=== PATIENT | female | born 1945 | race Caucasian/White ===

== ENCOUNTER → 2016-07-25 | Outpatient (CLI) | payer OTHER ==
[~2016-07-25] MED LIST: ALEVE220 MG PO; ALLERGY10 M1 PO; AMBIEN 5 MG TABL5 M1 PO; AMITRIPTYLINE H25 M2 PO; ASPIR 8181 M1 PO; B-121000 MC2 PO; BISACODYL SUPP10 MG RE; CALCIUM 500 +1 EAC5 PO; CHLORZOXAZONE500 MG PO; CLARITIN10 M2 PO; CLARITIN10 MG PO; COLACE100 MG PO; DICLOFENAC SOD50 M1 PO; DIOVAN 80 MG TA80 M1 PO; FLOMAX0.4 MG PO; HYDROCODONE-AP1 EAC6 PO; IBUPROFEN 600600 M1 PO; KEFLEX500 M1 PO; KLOR-CON 1010 MEQ PO; LIORESAL 10 MG10 MG PO; LORATIDINE 10 M10 M1 PO; MAGNESIUM OXID400 MG PO; MAGOX 400400 MG PO; MIRALAX17 GM PO; MYRBETRIQ25 MG PO; MYRBETRIQ50 MG PO; NABUMETONE 750750 M1 PO; NEW BLOOD PRESSURE; NORCO 5-325 TA1 EACH PO; NORFLEX100 MG PO; OXYCODONE HCL10 MG PO; OXYCONTIN10 M1 PO; PERCOCET PO; SENNA LAXATIVE1 EACH PO; SERTRALINE HCL50 MG PO; TRAZODONE HCL100 MG PO; TRAZODONE HCL50 MG PO; ULTRAM50 MG PO; VALIUM10 MG PO; VITAMIN B-12500 MCG PO; XANAX 0.25 MG0.25 MG PO; XANAX 0.5 MG0.5 MG PO; ZANAFLEX4 MG PO; ZEBETA5 MG PO; ZIAC 5-6.25 MG1 EACH PO; ZOFRAN ODT4 MG SUBLING; ZYRTEC10 MG PO
== END ==
LOC: RAD 13:48
DX: Z12.31 Encounter for screening mammogram for malignant neoplasm of breast (principal)

== ENCOUNTER → 2017-09-17 | Outpatient (CLI) | payer OTHER, MEDICARE ==
[~2017-09-17] MED LIST changes: +CYMBALTA30 MG PO; +FLEXERIL PO; +IBUPROFEN 800800 M1 PO; +LEXAPRO 10 MG T10 M1 PO; +LOPERAMIDE 2 MG2 M1 PO; +MELATONIN3 MG PO; +METHOTREXATE 22.5 MG PO; +NEOMYCIN-POLY-7.5 ML OTIC; +OMEPRAZOLE20 M1 PO; +POTASSIUM20 PO; +REMICADE 1100 MG/VIA IV; +TRAMADOL 50 MG50 MG PO; +VALIUM5 MG PO
== END ==
LOC: RAD 00:46
DX: Z12.31 Encounter for screening mammogram for malignant neoplasm of breast (principal)

== ENCOUNTER 2018-01-16 12:59 | Inpatient (IN) | payer OTHER, MEDICARE ==
--- NOTE | ~2018-01-16 | 2DMMODE ---
[facility] [address] [place] [address] 2 D/M-MODE ECHOCARDIOGRAM Name: SHEILA SAMSON Room #: 431-P ADM IN M.R.#: [id number] Admission: 01/16/18 Attend Phys: Scott Edgar Discharge: Date of : 47 Date of Service: 01/16/18 1707 Report #: [id number] THIS REPORT FOR: //name// APPROVED REPORT Study performed: 01/16/2018 15:15:15 EXAM: Comprehensive 2D, Doppler, and color-flow Echocardiogram Patient Location: Bedside Room #: 431 Status: routine BSA: 1.48 HR: 72 bpm BP: 116/86 mmHg Other Information Technically limited study due to inability to position patient, Left side broken ribs, Breast implants. Indications Syncope 2D Dimensions LVEF(%): 45.13 (>50%) IVSd: 11.25 (7-11mm) LVOT Diam: 21.03 (18-24mm) LVDd: 44.17 mm PWd: 9.63 (7-11mm) Ascending Ao: 34.80 (22-36mm) LVDs: 34.33 (25-40mm) Aortic Root: 33.33 mm Conde's LVEF: 45.13 % Pulmonary Valve PV Peak Otto.: 0.65 m/s PV Peak Gr.: 1.71 mmHg Left Ventricle The left ventricle is normal size. There is normal left ventricular wall thickness. The left ventricular systolic function is normal. The left ventricular ejection fraction is within the normal range. LVEF is 55-60%. This study is not technically sufficient to allow evaluation of the LV diastolic function. Right Ventricle The right ventricle is mildly enlarged The right ventricular systolic function is normal. [facility] [address] [address] 2 D/M-MODE ECHOCARDIOGRAM Name: SHEILA SAMSON Room #: 431- ADM IN M.R.#: [id number] Admission: 01/16/18 Attend Phys: Scott Edgar Discharge: Date of : 47 Date of Service: 01/16/18 1707 Report #: [id number] Atria The left atrium size is normal. The right atrium size is normal. Aortic Valve The aortic valve is normal in structure. No aortic regurgitation is present. There is no aortic valvular stenosis. Mitral Valve The mitral valve is normal in structure. There is no mitral valve regurgitation noted. No evidence of mitral valve stenosis. Tricuspid Valve The tricuspid valve is normal in structure. There is no tricuspid valve regurgitation noted. Pulmonic Valve The pulmonary valve is normal in structure. There is no pulmonic valvular regurgitation. Great Vessels The aortic root is normal in size. The inferior vena cava is not well visualized. Pericardium There is no pericardial effusion. <Conclusion> The left ventricle is normal size. LVEF is 55-60%. This study is not technically sufficient to allow evaluation of the LV diastolic function. The right ventricle is mildly enlarged The right ventricular systolic function is normal. The left atrium size is normal. The aortic valve is normal in structure. No evidence of mitral valve stenosis. There is no mitral valve regurgitation noted. There is no tricuspid valve regurgitation noted. The aortic root is normal in size. There is no pericardial effusion. <ELECTRONICALLY SIGNED> By: Brayden Mg MD, FACC 01/16/181706 06 06 Brayden Mg MD, FACC /INF
--- NOTE | ~2018-01-16 | EKG ---
[address] [place] [address] ELECTROCARDIOGRAM REPORT Name: SHEILA SAMSON Room #: 431- ADM IN M.R.#: [id number] Admission: 01/16/18 Attend Phys: Ramirez Olguin Discharge: Date of : 47 Report #: [id number] THIS REPORT FOR: //name// [facility] Test Date: 2018-01-16 Test Time: 14:27:50 Pat Name: SHEILA MALI Department: Room: 431 Gender: F [employer] Assistant: Ramirez TOPETE : 1945 Requested By: Robe Angulo Order Number: [id number] MD: Rashid Sutherland Measurements Intervals [place] Rate: 81 P: 19 AK: 185 QRS: -3 QRSD: 84 T: -29 QT: 381 QTc: 443 Interpretive Statements Sinus rhythm Small inferior Q waves Poor R wave progression Nonspecific ST and T wave abnormality Compared to ECG 02/13/2014 08:11:10 Atrial premature complex(es) no longer present Electronically Signed On 01-17-2018 8:38:55 CDT by Rashid Sutherland [email or web address] <ELECTRONICALLY SIGNED> By: Rashid Sutherland MD, [facility] 01/17/18 0838 1427 1427 Rashid Sutherland MD, [facility] /EPI
--- NOTE | ~2018-01-16 | D ---
[facility] [place] [address] DISCHARGE SUMMARY Name: ARIAEFRAINARIAAFUANIKOLAS KWOKE Room #: 431-P [facility] IN M.R.#: [id number] Admission: 01/16/18 Attend Phys: Ramirez Olguin Discharge: 01/20/18 Date of : 47 Report #: [id number] THIS REPORT FOR: //name// CC: Scott Doe FINAL DIAGNOSES: 1. Cervical myelopathy. 2. Orthostatic hypotension. 3. Left rib fractures. 4. Psoriatic arthritis. HOSPITAL COURSE: The patient was admitted due to frequent falls at home after a previous admission at [facility] with only diagnosis of rib fractures. She had several drop episodes at home. She had mild orthostatic hypotension, and therefore, all her antihypertensives were discontinued. I stopped her Valium as well for concern of potential balance side effects. X-rays again showed left rib fractures, which was known. Dr. Rivera saw her and felt her psoriatic arthritis is under control. Dr. Mg saw her, and he did not feel there was active cardiac disease or dysrhythmia causing her symptoms. Dr. Mark from Neurology saw her, did not feel that any further workup was indicated at this point as this is mainly a balance issue. Interestingly, on the day of discharge, the patient reported in the past, it sounds like she may have had an EMG where she was diagnosed with a peripheral neuropathy, but she cannot remember those details. MRI of the cervical spine showed degenerative changes with disk herniation and canal stenosis at several levels. I felt her symptoms could be related to cervical myelopathy. I have recommended an outpatient EMG. PHYSICAL EXAMINATION: GENERAL: On the day of discharge, she was awake and alert. VITAL SIGNS: Stable. LUNGS: Clear. HEART: Regular. ABDOMEN: Soft, normoactive bowel sounds. EXTREMITIES: No edema. DISPOSITION: To be discharged to home with diet and activity as tolerated, resume all medications with the exception of Valium, and she will have a few tramadol for pain. Follow up with Dr. Doe in a week to consider referral for outpatient EMG. The patient is refusing consideration of halfway rehab or outpatient rehabilitation. <ELECTRONICALLY SIGNED> By: Robe Angulo MD 01/21/18 0844 1330 1350 Robe Angulo MD /nt
--- NOTE | ~2018-01-16 | H ---
[facility] [place] [address] HISTORY AND PHYSICAL Name: SHEILA SAMSON Room #: 431-P ADM IN M.R.#: [id number] Admission: 01/16/18 Attend Phys: Ramirez Olguin Discharge: Date of : 47 Report #: [id number] THIS REPORT FOR: //name// CC: Scott Doe DATE OF SERVICE: 01/16/2018 CHIEF COMPLAINT: Falls. HISTORY OF PRESENT ILLNESS: The patient is a 72-year-old female admitted from home with recurrent falls. She was hospitalized at [facility] either around the end of December or early January with multiple falls at home. She describes it as standing in the kitchen when she suddenly got "dizzy" and just dropped at the ground. She did not have the strength to get up and I had to call for her . She denies any loss of consciousness or any preceding symptoms. Since that time, she has fallen at least a half dozen more times. Her says that she will just lose her strength or balance or just complain of feeling dizzy and drop to the floor. She was hospitalized at [facility]. There, they diagnosed 3 left rib fractures, but no other pertinent findings. They recommended usp rehabilitation, which she declined and sounds like she left against medical advice. She was seen in the office earlier this week and recommended for admission. She declined, however, she had another fall and her called and at this point, she is admitted to the hospital. It is unclear what testing was done at the other hospital. It sounds like she was monitored on telemetry, which they report was unremarkable. said that she had several x-rays and scans, but other than the rib fractures, findings were negative. PAST MEDICAL HISTORY: Right humerus fracture with surgical repair in 2013 and 2014. She has had a cystocele x 2, anxiety and insomnia. She has a chronic diarrhea disorder. No clear diagnosis according to the patient and . PAST SURGICAL HISTORY: She has had hysterectomy. FAMILY HISTORY: Several members COPD. SOCIAL HISTORY: No chronic alcohol or tobacco use. ALLERGIES: VICODIN, TETANUS, SULFA. MEDICATIONS: List from home at the office is somewhat unclear, but it looks like she was on ibuprofen. She may get Remicade infusions, methotrexate, Flexeril, Valium p.r.n., melatonin, Cymbalta, omeprazole, loperamide she says she takes 8 a day, Lexapro, cholestyramine. It looks like antihypertensives [address] [address] HISTORY AND PHYSICAL Name: SHEILA SAMSON Room #: [address] [place] [address] IN ..#: [id number] Admission: 01/16/18 Attend Phys: Ramirez Olguin Discharge: Date of : 47 Report #: [id number] including valsartan have been discontinued. REVIEW OF SYSTEMS: She just complains of some left-sided pain, some diarrhea, general weakness; otherwise, no headache, chest pain, shortness of breath, nausea, vomiting, dysuria. PHYSICAL EXAMINATION: VITAL SIGNS: Per the nursing note. GENERAL: She is awake and alert, in no distress. HEAD AND NECK: Unremarkable, although she does seem to have some flexion contracture at the neck. LUNGS: Clear. HEART: Regular, no murmur. ABDOMEN: Soft, normoactive bowel sounds. EXTREMITIES: No edema. NEUROLOGIC: She is alert and oriented x 4, global strength about 3/5 and intact throughout. ASSESSMENT: 1. Repeated falls. 2. Presyncope. 3. PSORIATIC arthritis. 4. Recent left rib fractures. 5. Debility. PLAN: At this point, we will rule out any sort of cardiac arrhythmia or valvular disease to precipitate syncope and contributing to falls. Based on no cardiac history and what sounds to be regular normal telemetry at [facility], this seems less likely. I will ask the Neurology team to see her, perhaps there is some degree of peripheral neuropathy at play and we will gather data from [facility] considering MRI or CT of the brain. If those imaging have already been done, then we do not need to repeat that here. Ultimately, I told her and her that clinical treatment is probably going to send her on rehab and therapy that neither one of them seem very interested in. <ELECTRONICALLY SIGNED> By: Robe Angulo MD 01/17/18 1132 1348 1418 Robe Angulo MD /nt
[~2018-01-16 12:59] MED LIST changes: -CYMBALTA30 MG PO; -FLEXERIL PO; -IBUPROFEN 800800 M1 PO; -LEXAPRO 10 MG T10 M1 PO; -LOPERAMIDE 2 MG2 M1 PO; -MELATONIN3 MG PO; -METHOTREXATE 22.5 MG PO; -NEOMYCIN-POLY-7.5 ML OTIC; -OMEPRAZOLE20 M1 PO; -POTASSIUM20 PO; -REMICADE 1100 MG/VIA IV; -TRAMADOL 50 MG50 MG PO; -VALIUM5 MG PO
[2018-01-16 13:23] VITALS: BP 116/86
[2018-01-16 14:38] LABS: HEMATOCRIT 34.3 % (37.0-47.0); HEMOGLOBIN 11.3 gm/dL (12.0-15.0); MCH 27.5 pg (26.0-34.0); MCHC 32.9 g/dL (28.0-37.0); MCV 83.6 fL (80.0-100.0); RBC 4.11 mil/uL (4.20-5.00); RDW 19.2 % (10.5-14.5); WBC 10.2 thou/uL (4.0-11.0)
[2018-01-16 14:50] LABS: ALBUMIN 3.3 g/dL (3.4-5.0); CREATININE 0.6 mg/dL (0.6-1.0); POTASSIUM 3.7 mmol/L (3.5-5.1); TOTAL BILIRUBIN 0.4 mg/dL (<0.1-1.0); TOTAL PROTEIN 6.6 g/dL (6.4-8.2)
[2018-01-16 17:32] VITALS: BP 145/81; BP 95/70
[2018-01-16 17:34] VITALS: BP 96/66
[2018-01-16 20:15] VITALS: BP 113/72
[2018-01-17 05:45] VITALS: BP 108/75
[2018-01-17 07:50] VITALS: BP 106/74
[2018-01-17] MEDS ORDERED: IBUPROFEN 800800 M1 PO (11:10)
[2018-01-17] MEDS ORDERED: REMICADE 1100 MG/VIA IV (11:11)
[2018-01-17] MEDS ORDERED: POTASSIUM20 PO (11:11)
[2018-01-17] MEDS ORDERED: METHOTREXATE 22.5 MG PO (11:12)
[2018-01-17] MEDS ORDERED: FLEXERIL PO (11:14)
[2018-01-17] MEDS ORDERED: VALIUM5 MG PO (11:15)
[2018-01-17] MEDS ORDERED: MELATONIN3 MG PO (14:21)
[2018-01-17] MEDS ORDERED: OMEPRAZOLE20 M1 PO (14:22)
[2018-01-17] MEDS ORDERED: CYMBALTA30 MG PO (14:22)
[2018-01-17] MEDS ORDERED: LOPERAMIDE 2 MG2 M1 PO (14:23)
[2018-01-17] MEDS ORDERED: NEOMYCIN-POLY-7.5 ML OTIC (14:24)
[2018-01-17] MEDS ORDERED: LEXAPRO 10 MG T10 M1 PO (14:25)
[2018-01-17 20:15] VITALS: BP 101/69
[2018-01-18 03:51] VITALS: BP 124/71
[2018-01-18 07:46] VITALS: BP 116/77
[2018-01-18 20:28] VITALS: BP 125/76
[2018-01-19 05:00] VITALS: BP 117/66
[2018-01-19 11:24] VITALS: BP 135/85
[2018-01-19 16:40] VITALS: BP 119/76
[2018-01-19 20:30] VITALS: BP 129/97
[2018-01-20 05:30] VITALS: BP 135/77
[2018-01-20 07:20] VITALS: BP 122/77
[2018-01-20] MEDS ORDERED: TRAMADOL 50 MG50 MG PO (13:27)
[2018-01-20 13:54] VITALS: BP 122/77
== END 2018-01-20 16:46 | disposition home or self-care (01) | DRG 552 ==
LOC: 4E 12:59 → ENTRNSPT 01-20 14:25 → EDTRNSPTSTS 01-20 14:28 → 4E 01-20 16:46
PROVIDERS: Internal Medicine Geriatric Medicine
DX: M50.03 Cervical disc disorder with myelopathy, cervicothoracic region (principal); S22.32XA Fracture of one rib, left side, initial encounter for closed fracture; R29.6 Repeated falls; I95.1 Orthostatic hypotension; L40.50 Arthropathic psoriasis, unspecified; F41.9 Anxiety disorder, unspecified; G47.00 Insomnia, unspecified; K52.9 Noninfective gastroenteritis and colitis, unspecified; M06.9 Rheumatoid arthritis, unspecified; G89.29 Other chronic pain; Z87.828 Personal history of other (healed) physical injury and trauma; Z90.710 Acquired absence of both cervix and uterus; Z83.6 Family history of other diseases of the respiratory system; Z88.2 Allergy status to sulfonamides; Z88.7 Allergy status to serum and vaccine; Z88.8 Allergy status to other drugs, medicaments and biological substances; Z90.49 Acquired absence of other specified parts of digestive tract; W18.39XA Other fall on same level, initial encounter; Y93.89 Activity, other specified; Y92.89 Other specified places as the place of occurrence of the external cause; Y99.8 Other external cause status
CPT/HCPCS: 10783

== ENCOUNTER → 2018-09-17 | Outpatient (CLI) | payer OTHER, MEDICARE ==
[~2018-09-17] MED LIST changes: +CYMBALTA30 MG PO; +FLEXERIL PO; +IBUPROFEN 800800 M1 PO; +LEXAPRO 10 MG T10 M1 PO; +LOPERAMIDE 2 MG2 M1 PO; +MELATONIN3 MG PO; +METHOTREXATE 22.5 MG PO; +NEOMYCIN-POLY-7.5 ML OTIC; +OMEPRAZOLE20 M1 PO; +POTASSIUM20 PO; +REMICADE 1100 MG/VIA IV; +TRAMADOL 50 MG50 MG PO; +VALIUM5 MG PO
== END ==
LOC: RAD 01:09
DX: Z12.31 Encounter for screening mammogram for malignant neoplasm of breast (principal)

== ENCOUNTER → 2019-07-21 | Outpatient (CLI) | payer OTHER, MEDICARE | LOC: RAD 15:08 | DX: M25.552 Pain in left hip (principal) ==

== ENCOUNTER 2020-06-27 09:51 | Inpatient (IN) | payer OTHER, MEDICARE ==
[~2020-06-27] VITALS: Ht 154.9 cm; Wt 55.3 kg
--- NOTE | ~2020-06-27 | EMS ---
[facility] [address] [place] [address] EMS Patient Care Report Name: SHEILA SAMSON Room #: PRE [facility].Cash#: [id number] Admission: Attend Phys: Discharge: Date of : 47 Report #: [id number] THIS REPORT FOR: //name// Report Transmitted: 06/27/2020 09:50 EMS Care Summary [facility] MED-ACT Incident [id number] @ 06/27/2020 08:57 Incident Location [address] [place] [address] Patient SHEILA SAMSON Female, 74 Years 1945 Patient Address [address] [place] [address] Patient History Hypertension (HTN), Patient Allergies No known allergies, Patient Medications Atenolol, Diazepam, Lisinopril, Oxycodone, Methotrexate, Chief Complaint dizziness, weakness Disposition Transported No Lights/Soso Dispatch Reason Falls Transported To [facility] Narrative This crew arrives to find the pt sitting slumped against the door to her bathroom. She appears alert, fatigued, and in no obvious distress. Her is on scene They report the pt experiencing increasing weakness over the "past few weeks". [facility] [address] [place] [address] EMS Patient Care Report Name: SHEILA SAMSON Room #: PRE [facility].R.#: [id number] Admission: Attend Phys: Discharge: Date of : 47 Report #: [id number] She adds that she cannot smell over that period of time. They deny any none exposure to covid with limited access to other people; the drives a school bus. She reports a cough, fatigue, and dizziness. Prior to calling she slid to the floor and was unable to get up on her own. She denies any acute injury or pain. The pt is carried from her bathroom to the nearby cot, secured and moved to the ambulance without incident. She reports no change in her condition with oxygen administration. No change in condition en route. The pt is moved to ER bed 9 without incident, report and care given to NUBIA Luong. Initial Vitals @09:29P: 47,SpO2: 89, @09:39P: 66,SpO2: 99, @09:20P: 78,R: 22,BP: 118/77,Pain: 2/10,GCS: 15,Temp: 97.5F,SpO2: 92,Revised Trauma: 12, @09:27P: 65,BP: 113/75,SpO2: 92, @09:42P: 68,BP: 94/62,SpO2: 92, @09:41P: 67,BP: 87/61,SpO2: 87, Assessments @09:28MENTAL:Person Oriented,Place Oriented,Event Oriented,SKIN:HEENT:Eyes: Left Pupil: 3-mm,Eyes: Right Pupil: 3-mm,Head/Face: No Abnormalities,LUNG SOUNDS:General: No Abnormalities,ABDOMEN:General: No Abnormalities,PELVIS//GI:No Abnormalities,EXTREMITIES:Left Arm: No Abnormalities,Right Arm: No Abnormalities,Left Leg: No Abnormalities,Right Leg: No Abnormalities,PULSE:NEURO:No Abnormalities, Impression COVID-19 - Suspected - no known exposure Procedures @09:22Surgical Mask on PatientResponse: Unchanged@09:21Oxygen FlowRate: 4 Device: Nasal Cannula (NC) Response: ImprovedSucceeded Timeline 08:55,Call Received 08:55,Psap Call 08:57,Dispatched 08:59,En Route 09:07,On Scene 09:12,At Patient 09:20,BP: 118/77 M,PULSE: 78,RR: 22 R,SPO2: 92 Ox,ETCO2: ,BG: ,PAIN: 2,GCS: 15, 09:21,Oxygen FlowRate: 4 Device: Nasal Cannula (NC) Response: ImprovedSucceeded, 09:22,Surgical Mask on Patient,Response: Unchanged 09:23,Depart Scene [address] [address] EMS Patient Care Report Name: SHEILA SAMSON Room #: PRE M.R.#: [id number] Admission: Attend Phys: Discharge: Date of : 47 Report #: [id number] 09:27,BP: 113/75 M,PULSE: 65,RR: R,SPO2: 92 Ox,ETCO2: ,BG: ,PAIN: ,GCS: , 09:29,BP: / M,PULSE: 47,RR: R,SPO2: 89 Ox,ETCO2: ,BG: ,PAIN: ,GCS: , 09:39,BP: / M,PULSE: 66,RR: R,SPO2: 99 Ox,ETCO2: ,BG: ,PAIN: ,GCS: , 09:41,BP: 87/61 M,PULSE: 67,RR: R,SPO2: 87 Ox,ETCO2: ,BG: ,PAIN: ,GCS: , 09:42,BP: 94/62 M,PULSE: 68,RR: R,SPO2: 92 Ox,ETCO2: ,BG: ,PAIN: ,GCS: , 09:48,At Destination 10:03,Call Closed Disclaimer v1.1 Copyright 2020 [employer] This EMS Care Summary contains data elements from the applicable legal record (which may be displayed differently). It is designed to provide pertinent information for the following purposes: continuity of care, clinical quality, and state data reporting. The complete legal record is available to ED staff and administrators of the receiving hospital in [employer]'s Patient Tracker. All data is provided "as is."
[2020-06-27 09:52] VITALS: BP 118/63
[2020-06-27 10:46] LABS: ABSOLUTE NEUTROPHILS 15.8 thou/uL (1.4-8.2); BASOPHILS 0.7 % (0.0-2.0); HEMATOCRIT 40.2 % (37.0-47.0); HEMOGLOBIN 12.9 gm/dL (12.0-15.0); MCH 30.7 pg (26.0-34.0); MCHC 32.1 g/dL (28.0-37.0); MCV 95.6 fL (80.0-100.0); MONOCYTES 7.7 % (1.0-8.0); PLATELET COUNT 252 thou/uL (150-400); POLYS 82.6 % (36.0-66.0); RBC 4.21 mil/uL (4.20-5.00); RDW 16.8 % (10.5-14.5); URINE BILIRUBIN NEGATIVE (Negative); URINE BLOOD NEGATIVE (Negative); URINE CLARITY CLOUDY; URINE COLOR YELLOW; URINE GLUCOSE-RANDOM* NEGATIVE (Negative); URINE KETONES 1+ (Negative); URINE NITRITE-REFLEX NEGATIVE (Negative); URINE PROTEIN (DIPSTICK) NEGATIVE (Negative); URINE SPECIFIC GRAVITY 1.015 (1.005-1.035); URINE UROBILINOGEN 0.2 E.U./dl (0.2-1.0); WBC 19.1 thou/uL (4.0-11.0)
[2020-06-27 10:48] LABS: URINE LEUKOCYTES-REFLEX 2+ (Negative)
[2020-06-27 10:55] LABS: ANION GAP 13 mmol/L (7-16); BUN 19 mg/dL (7-18); CALCIUM 9.9 mg/dL (8.5-10.1); CHLORIDE 102 mmol/L (98-107); CO2 23 mmol/L (21-32); GLUCOSE 94 mg/dL (74-106); POTASSIUM 5.6 mmol/L (3.5-5.1); SODIUM 138 mmol/L (136-145)
[2020-06-27 10:57] LABS: SQUAMOUS 0-3 Few /LPF (0-3)
[2020-06-27 10:58] LABS: AMORPHOUS URATES Many /LPF (None Seen); CASTS None Seen /LPF (None Seen); URINE RBC None Seen /HPF (0-2); URINE WBC-REFLEX 6-15 Few /HPF (0-5)
[2020-06-27 11:05] LABS: ALBUMIN 3.8 g/dL (3.4-5.0); DIRECT BILIRUBIN 0.1 mg/dL (<0.1-0.2); SGOT 21 U/L (15-37); SGPT 29 U/L (30-65); TOTAL BILIRUBIN 0.6 mg/dL (0.2-1.0); TROPONIN-I <0.06 ng/mL (<0.06)
--- NOTE | 2020-06-27 13:24 | EKG ---
[address] [address] ELECTROCARDIOGRAM REPORT Name: SHEILA SAMSON Room #: 170-9 ADM IN M.R.#: [id number] Admission: 06/27/20 Attend Phys: Jose Armando Chang MD Discharge: Date of : 47 Report #: [id number] [facility] ED Test Date: 2020-06-27 Test Time: 10:14:09 Pat Name: SHEILA RUSHADRIELARIA Department: Room: 170 Gender: F Personal Development Coach: angela : 1945 Requested By: Quan Bundy Order Number: [id number] MD: Ryan Pardo Measurements Intervals [place] Rate: 67 P: 11 [place]: 143 QRS: -32 QRSD: 114 T: -14 QT: 426 QTc: 450 Interpretive Statements Sinus rhythm Borderline IVCD with LAD Inferior infarct, old Baseline wander in lead(s) V1,V6 Compared to ECG 01/16/2018 14:27:50 Poor R-wave progression no longer present ST (T wave) deviation no longer present Electronically Signed On 06-27-2020 13:24:48 ENTEROSTOMAL THERAPY NURSE by Ryan Pardo [email or web address] <ELECTRONICALLY SIGNED> By: Ryan Pardo MD, FAC 06/27/20 1324 1014 1014 Ryan Pardo MD, [facility] /EPI
--- NOTE | 2020-06-27 13:47 | NUR ---
[facility] [address]
[2020-06-27 14:34] LABS: FOLIC ACID > 100.0 ng/mL (8.6-58.9)
[2020-06-27 23:02] VITALS: BP 126/74
[2020-06-27 23:45] VITALS: BP 161/87
[2020-06-27 23:47] VITALS: BP 161/87
[2020-06-28 03:11] VITALS: BP 129/84
[2020-06-28 03:40] LABS: ABSOLUTE NEUTROPHILS 8.1 thou/uL (1.4-8.2); BASOPHILS 0.7 % (0.0-2.0); HEMATOCRIT 35.3 % (37.0-47.0); HEMOGLOBIN 11.6 gm/dL (12.0-15.0); LYMPHOCYTES 8.8 % (24.0-44.0); MCH 31.1 pg (26.0-34.0); MCHC 32.9 g/dL (28.0-37.0); MCV 94.7 fL (80.0-100.0); MONOCYTES 2.1 % (1.0-8.0); PLATELET COUNT 211 thou/uL (150-400); POLYS 88.4 % (36.0-66.0); RBC 3.73 mil/uL (4.20-5.00); WBC 9.2 thou/uL (4.0-11.0)
[2020-06-28 03:54] LABS: ALBUMIN 2.7 g/dL (3.4-5.0); ANION GAP 15 mmol/L (7-16); BUN 17 mg/dL (7-18); CALCIUM 8.5 mg/dL (8.5-10.1); CHLORIDE 101 mmol/L (98-107); CHOLESTEROL 205 mg/dL (<200); CO2 21 mmol/L (21-32); CREATININE 0.6 mg/dL (0.6-1.0); GLUCOSE 136 mg/dL (74-106); HDL CHOLESTEROL 67 mg/dL (>40); LDL CHOLESTEROL 124 mg/dL (<100); MAGNESIUM 1.7 mg/dL (1.8-2.4); SGOT 13 U/L (15-37); SGPT 22 U/L (30-65); SODIUM 137 mmol/L (136-145); TC:HDL 3.1 Ratio (Not establshd); TOTAL BILIRUBIN 0.4 mg/dL (0.2-1.0); TOTAL PROTEIN 5.4 g/dL (6.4-8.2); TRIGLYCERIDE 72 mg/dL (<150); VLDL 14 mg/dL (<40)
[2020-06-28 04:11] LABS: POTASSIUM 4.3 mmol/L (3.5-5.1)
[2020-06-28 04:20] LABS: FIBRINOGEN 333.6 mg/dL (210-360); PROTIME 10.7 Seconds (9.3-11.4)
[2020-06-28 07:11] VITALS: BP 148/93
--- NOTE | 2020-06-28 08:00 | NUR ---
PT ADMITTED FROM HOME COVID+. ALSO +. PT WAS DESATTING INTO THE 80'S AT HOME AND CALLED EMS TO BRING HER TO THE HOSPITAL. SHE WAS ALSO HAVING WEAKNESS, COUGH AND LOSS OF SMELL, FATIGUE AT HOME. COVID PCR TEST + HERE AT [facility]. PT HAD EPISODES OF WEAKNESS AND SEVERAL FALLS AT HOME SHE STATES SHE DOESNT KNOW WHY. PT IRRITABLE AND SHORT WITH STAFF AT TIMES. MELATONIN GIVEN FOR SLEEP. PT UNSTEADY ON FEET. INSTRUCTED PT ON FALL PRECAUTIONS. BED ALARM IS ON. INC OF STOOL AND URINE AT TIMES. VOID CLEAR YELLOW URINE PER BSC. NS AT 75 INFUSING LEFT ARM AND ABX STARTED ORDERED. CALLED DR MACE ANSWERING SERVICE TO CALL BACK RE GRAM+ [facility]CCI SUGGESTIVE OF STAFF IN 1 SET OF BLD CX. NO RETURN OF CALL YET. PLACED NEUROLOGY CONSULT REQUEST ALSO.
[2020-06-28 11:10] VITALS: BP 161/97
[2020-06-28] MEDS ORDERED: OXYCODONE HCL20 M1 PO (13:05)
[2020-06-28] MEDS ORDERED: DULOXETINE HCL60 MG PO (13:07)
[2020-06-28] MEDS ORDERED: NORVASC5 MG PO (13:07)
[2020-06-28] MEDS ORDERED: HYDROCORTISONE10 MG PO (13:10)
[2020-06-28] MEDS ORDERED: DIAZEPAM 10 MG10 M2 PO (13:13)
[2020-06-28] MEDS ORDERED: ATENOLOL 50MG T50 MG PO (13:15)
--- NOTE | 2020-06-28 13:53 | NUR ---
INITIAL ASSESSMENT: Received consult for discharge planning. SW reviewed chart and spoke with nursing and attending physician. Pt was admitted from home due to UTI/weakness. Pt placed in Enhanced Isolation due to COVID-19. Pt and spouse both have tested COVID positive. SW spoke with pt via phone. Introduced role of SW. Pt is alert/orientated. Pt reports she lives at home with her . Prior to admission, pt was independent with ADLs. Pt states she has a walker at home. Pt reports she has some stairs inside the house that she need to navigate. Pt has been having frequent falls. Pt denies having home health in the past. Pt has been to and [facility] in the past. Pt's PCP is Dr. Franki Doe. Pt asked when she will be discharged home. SW explained that the attending physician will discharge her when she is medically stable. Awaiting PT eval at this time. SW is following to assist as needed with discharge planning.
[2020-06-28 15:16] VITALS: BP 131/78
--- NOTE | 2020-06-28 17:13 | NUR ---
CARE ASSUMED AT 0700, ALERT AND ORIENTED X4, DENIES CHEST PAIN, NAUSEA AND VOMITTING. PT IS ON 2L OF OXYGEN, NO SIGNS OF DISTRESS NOTED. PT UP TO BSC WITH 1 ASSIST, UNSTEADY ON FEET. PT REFUSED HER BREAKFAST AND LUNCH, STATED SHE IS ON A DIET AND ONLY EAT ONCE A DAY. FALL PRECAUTIONS IN PLACE. WILL CONTINUE TO MONITOR.
[2020-06-28 19:46] VITALS: BP 116/71
--- NOTE | 2020-06-28 22:22 | NUR ---
PT RESTING IN BED TALKING ON PHONE, BLUNTED AFFECT, GOOD EYE CONTACT. PT STATED SHE WANTS TO GET OUT OF THIS HELL HOLE. IVF INTACT. PT ASKS QUESTIONS REGARDING HER MEDICINE. PT CALLS FOR ASSISTANCE TO USE BSC. PALE SKIN TONE. LUNGS CLEAR. PT REPORTS LOSS OF SMELL AND TASTE, PT DRINKING ATKINS SHAKES BROUGHT IN BY FAMILY. UNSTEADY WITH TRANSFERS, BED ALARM ON.
[2020-06-29 03:09] VITALS: BP 148/75
[2020-06-29 06:32] LABS: ALBUMIN 3.2 g/dL (3.4-5.0); CALCIUM 8.7 mg/dL (8.5-10.1); CREATININE 0.7 mg/dL (0.6-1.0); DIRECT BILIRUBIN 0.1 mg/dL (<0.1-0.2); PHOSPHORUS 3.3 mg/dL (2.5-4.9); POTASSIUM 3.3 mmol/L (3.5-5.1); TOTAL BILIRUBIN 0.4 mg/dL (0.2-1.0); TOTAL PROTEIN 6.7 g/dL (6.4-8.2)
[2020-06-29 07:07] VITALS: BP 145/79
[2020-06-29 11:08] VITALS: BP 183/101
--- NOTE | 2020-06-29 11:51 | NUR ---
Patient BP elevated, complains of nausea, headache /10, abdomin pain /10, has talked Linda Rodriguez about it.
[2020-06-29] MEDS ORDERED: ZESTRIL20 MG PO (12:19)
[2020-06-29 15:07] VITALS: BP 131/83
--- NOTE | 2020-06-29 18:10 | NUR ---
The staff talked to the pharmacy of the patient, was told patient was on two kinds of BP medication: Amlodapine and linspril. Patient insisted she had taken 4 kinds of BP medication, but could not remember the names of them.
[2020-06-29 19:15] VITALS: BP 172/96
--- NOTE | 2020-06-29 22:33 | NUR ---
PT SLEEPING IN BED, EASILIY AROUSED. PT REPORTED HAVING A POOR DAY. PT STATED HER IV BEEPS TO MUCH AND KEEPS HER AWAKE. PT HAS PALE SKIN TONE, HAS SCOWL ON FACE AND SHARP TONED WHEN TALKING WITH STAFF. PT COMPLIANT WITH MEDICATIONS, DECLINED HS SNACK. PT REPORTED NAUSEA AND HAD DRY HEAVES, PT PROVIDED PRN ZOFRAN, PT REPORTED TO STAFF SHE HAD NAUSEA ON DAY SHIFT WELL. . IVF INTACT. PT CALLS FOR ASSISTANCE WITH BSC. BED ALARM ON. PT STATED SHE IS LEAVING TOMORROW.
--- NOTE | 2020-06-30 03:54 | NUR ---
PT GOT OOB X 3 TO USE BSC AND NOT CALL FOR ASSISTANCE. PT REDIRETED TO WAIT. PT STATED THAT SHE WOULD WET THE BED IF SHE DID NOT GET UP, PT ASKED TO WAIT FOR STAFF TO ASSIST WITH IV AND PLACE ON PPE. AFTER STAFF HAD ON PPE PT REFUSED TO USE BSC AND STATED SHE WAS GOING TO WET THE BED. BED ALARM ON.
[2020-06-30 03:59] VITALS: BP 161/89
[2020-06-30 06:11] LABS: ALBUMIN 2.7 g/dL (3.4-5.0); ANION GAP 11 mmol/L (7-16); BUN 12 mg/dL (7-18); CALCIUM 8.3 mg/dL (8.5-10.1); CHLORIDE 104 mmol/L (98-107); CO2 25 mmol/L (21-32); CREATININE 0.6 mg/dL (0.6-1.0); DIRECT BILIRUBIN < 0.1 mg/dL (<0.1-0.2); GLUCOSE 131 mg/dL (74-106); PHOSPHORUS 2.5 mg/dL (2.5-4.9); POTASSIUM 3.7 mmol/L (3.5-5.1); SGOT 11 U/L (15-37); SGPT 26 U/L (30-65); SODIUM 140 mmol/L (136-145); TOTAL BILIRUBIN 0.3 mg/dL (0.2-1.0); TOTAL PROTEIN 5.8 g/dL (6.4-8.2)
[2020-06-30 07:15] VITALS: BP 155/92
[2020-06-30 11:24] VITALS: BP 142/93
--- NOTE | 2020-06-30 12:12 | NUR ---
PITA reviewed chart and spoke with nursing and attending physician. Pt remains in Enhanced Isolation due to COVID-19. Pt is afebrile and not requiring O2. Pt is on IV abx and IV steroids. Pt is completing course of Remdesivir and has completed course of Ivermectin. Recommendation made for pt to consider post-acute placement for rehabe. PITA spoke with pt's via phone. Introduced role of SW. Pt has 4-5 falls per day and has been weak. Pt's states she is on a strict Keto diet right now, as pt has been concerned with her weight. PITA discussed possible need for post-acute placement when discharged for continued therapy services/medical mgmt. Pt's spouse is agreeable if pt agrees. Pt's spouse requesting update from physician. PITA provided contact info to attending physician. PITA placed call to pt's room. No answer. PITA is following to assist as needed with discharge planning.
[2020-06-30 14:59] VITALS: BP 130/85
--- NOTE | 2020-06-30 17:47 | NUR ---
CARE ASSUMED AT 0700, ALERT AND ORIENTED X4, PT DENIES ANY PAIN. ON ROOM AIR, NO SIGNS OF DISTRESS NOTED. PT UNSTEADY WHEN UP TO BSC, UP WITH ONE ASSIST. PT REFUSE HER BREAKFAST ANND LUNCH BUT ATE HER DINNER. HAD TO BM. FALL PRECAUTIONS IN PLACE\. WILL CONTINUEN TO MONITOR
[2020-06-30 20:15] VITALS: BP 141/91
--- NOTE | 2020-07-01 01:25 | NUR ---
ASSESSED AT START OF SHIFT, PT A&OX4. DENIES PAIN, C/O OF NAUSEA ZOFRAN GIVEN X1 NO EMESIS. PT ASKED FOR MELATONIN AT HS. CALLED ONCALL CLOTH PRINTING BACK TENDER AND ORDERS ACKNOWLEDGE. IV INTACT WITH FLUIDS INFUSING. PO FLUID PROVIDED. PT RESTING WELL IN BED. FALL PREC IN PLACE AND WILL CONT TO MONITOR. SATS STABLE ON RA.
[2020-07-01 04:30] VITALS: BP 145/92
[2020-07-01 06:46] LABS: ALBUMIN 2.7 g/dL (3.4-5.0); CALCIUM 8.3 mg/dL (8.5-10.1); CREATININE 0.5 mg/dL (0.6-1.0); DIRECT BILIRUBIN 0.1 mg/dL (<0.1-0.2); PHOSPHORUS 3.5 mg/dL (2.5-4.9); TOTAL BILIRUBIN 0.3 mg/dL (0.2-1.0); TOTAL PROTEIN 5.5 g/dL (6.4-8.2)
[2020-07-01 08:26] VITALS: BP 169/105
--- NOTE | 2020-07-01 13:24 | NUR ---
PT CARE ASSUMED AT 0700. A&Ox4. DNR. MEDSURGE TEL SINUS TACHY ON THE MONITOR. UP WITH STANDBY ASSIST TO THE BEDSIDE COMMODE AND RECLINER. PT EDUCATED ON HOW TO CALL DIETARY TO ORDER HER OWN FOOD SINCE SHE IS ON A STRICT KETO DIET. PT TRIES TO MANIPULATE STAFF INTO BRINGING HER COFFE EVEN THOUGH SHE IS ON A HEART HEALTHY DIET. NO COFFE AT THIS MOMENT PER DR. BONILLA. POTASSIUM 3.0 THIS AM. IV PATENT WITH NO REDNESS OR EDEMA, FLUID SINFUSING. DR. LEMOS HAS NOT SEEN PT AT THIS MOMENT. FALL PROTOCOL IN PLACE. CALL LIGHT IN REACH. WILL CONTINUE TO MONITOR.
--- NOTE | 2020-07-01 13:47 | HC ---
[facility] [place] [address] CONSULTATION Name: SHEILA SAMSON Room #: 351-P ADM IN M.R.#: [id number] Admission: 06/27/20 Attend Phys: Jose Armando Chang MD Discharge: Date of : 47 Report #: [id number] THIS REPORT FOR: cc: Scott Doe MD, Christopher B. MD Khosla,Yang Bhat MD ~ DATE OF SERVICE: 06/27/2020 HISTORY OF PRESENT ILLNESS: This is a 74-year-old female patient who has a complicated medical history. The patient did not provide much history because she is confused. She has large records in the computer and I reviewed those records. It would appear that this patient has seen Dr. Mg, the recruitment intern and Dr. Mark, the neurologist in 2018. The patient was having orthostatic hypotension at that time. The tells me that this patient has not been feeling good for several weeks. She was not checking her blood, so it is not possible to tell whether she was having postural hypotension or not. She was falling, but those falls have been documented as far as back in 2018 and she was becoming progressively more confused. The patient was diagnosed with COVID today. REVIEW OF SYSTEMS: Positive for loss of taste and smell, nausea, increasing generalized weakness, falls, although these things have been present for a long time. Review of the record indicates that she has been falling at least until 2018. Record indicates her oxygen saturation was in 80s when she came in. A 14-point review of systems is positive for respiratory failure, recurrent falls, hyperkalemia, hypertension, history of hypotension, history of postural hypotension, history of anxiety disorder, history of psoriatic arthritis and this was a relevant 14-point review of system. PAST MEDICAL HISTORY: Positive for falls and I reviewed those records, which are pretty extensive. FAMILY HISTORY: Noncontributory. SOCIAL HISTORY: She drinks alcohol on special occasions. PHYSICAL EXAMINATION: Pretty limited. She does know what month it is, but she does not know what hospital she is in. She looks pretty confused. Because of that examination is difficult. Cranial nerve examinations appear unremarkable. She moves all 4 extremities. I think her position sense is intact. Reflexes she does not relax. She is not good to look at the fundus. There is no meningeal sign. There is no carotid bruit. She does appear to be in respiratory distress. VITAL SIGNS: Blood pressure is 108/64, it was as low as 92/73; respirations 16; [facility] [address] [place] [address] CONSULTATION Name: SHEILA SAMSON Room #: [facility] IN M.R.#: [id number] Admission: 06/27/20 Attend Phys: Jose Armando Chang MD Discharge: Date of : 47 Report #: [id number] pulse is 69. CT scan was reviewed and that showed a question of brainstem stroke, but it can also be artifact. IMPRESSION: This patient has numerous medical problems. Sometime along the line, she needs further workup. She need to get stabilized before we get the further workup. I will suggest putting the patient on aspirin and getting more workup done, especially MRI when the patient stabilizes. If MRI does not show any acute stroke, then further evaluation and management may be indicated in this patient. Thank you very much for this referral. I spent more than 50 minutes of time taking care of this patient and majority was spent counseling the , coordinating as well as reviewing extensive records and imaging studies in the computer. Thank you very much for this referral. <ELECTRONICALLY SIGNED> By: Yang Ernandez MD 07/01/20 1347 1602 1954 Yang Ernandez MD /nt
[2020-07-01] MEDS ORDERED: ATENOLOL 50MG T50 M1 PO (13:58)
[2020-07-01] MEDS ORDERED: CORTEF 20 MG TA20 M1 PO (13:59)
[2020-07-01 16:30] VITALS: BP 150/94
[2020-07-01 19:40] VITALS: BP 130/81
[2020-07-01 20:15] VITALS: BP 130/81
[2020-07-02 03:24] VITALS: BP 147/97
--- NOTE | 2020-07-02 03:43 | NUR ---
PT AOX4 WITH INTERMITTENT FORGETFULNESS. PT REPORTS 4/10 ABDOMINAL PAIN. PT DENIES SOB WHILE ON ROOM AIR. PT RECEIVING PRN PO APAP Q4HR. PT REPORTS BREAKTHROUGH PAIN. REVIEWED HOME MEDICATIONS. ONCALL INSIDE PLANT SUPERVISOR NOTIFIED, EMAR UPDATED. PT RECEIVING PRN PO OXYCODONE Q8HR. PT TOLERATING PO INTAKE OF FLUIDS AND HEART HEALTHY DIET WITHOUT ISSUE. PT REPORTS NAUSEA WITHOUT EMESIS WHEN SQ MEDICATIONS GIVEN IN ABDOMEN. PT RECEIVING PRN IV ZOFRAN Q4HR. PT AMBULATING WITH STANDBY ASSIST TO BATHROOM. IV NOTED TO HAVE BREAK IN CANNULA, LEAKING AT IV SITE. IV SITE OBTAINED ON LEFT FOREARM ON 3RD ATTEMPT. PT NOTED TO BE ON STANDBY ON TELE MONITOR, LAST CAPTURED AT 1539. UPON INVESTIGATING, PT REPORTS NEW ELECTRODES ATTACHED AFTER SHOWER, TELE MONITOR TURNED ON BY THIS NURSE. NO ADVERSE EVENTS OR STATUS CHANGE OCCURRED DURING THAT TIME. PT ENCOURAGED TO NOTIFY STAFF FOR ALL NEEDS, CALL LIGHT WITHIN REACH, BED ALARM ON, BED IN LOWEST POSITION, ROOM REMAINS NEAR NURSES STATION, FREQUENT MONITORING WILL CONTINUE.
[2020-07-02 06:03] LABS: ALBUMIN 2.7 g/dL (3.4-5.0); ANION GAP 8 mmol/L (7-16); BUN 13 mg/dL (7-18); CALCIUM 8.6 mg/dL (8.5-10.1); CHLORIDE 105 mmol/L (98-107); CO2 30 mmol/L (21-32); CREATININE 0.5 mg/dL (0.6-1.0); DIRECT BILIRUBIN < 0.1 mg/dL (<0.1-0.2); GLUCOSE 156 mg/dL (74-106); PHOSPHORUS 3.9 mg/dL (2.6-4.7); SGOT 12 U/L (15-37); SGPT 31 U/L (14-59); SODIUM 143 mmol/L (136-145); TOTAL BILIRUBIN 0.3 mg/dL (0.2-1.0); TOTAL PROTEIN 5.4 g/dL (6.4-8.2)
[2020-07-02 06:04] LABS: POTASSIUM 2.9 mmol/L (3.5-5.1)
[2020-07-02 07:18] VITALS: BP 160/104
--- NOTE | 2020-07-02 11:02 | NUR ---
PT CARE ASSUMED AT 0700. A&Ox4. BP STILL ELEVATED, PATIENT STATED THAT THE BP MEDS SHE IS RECEIVING ARE NOT TH ECORRECT DOSES AND THAT SOME ARE MISSING. SHE STATED THAT SHE TAKES FOUR BP MEDS CURRENTLY. MEDS RECONCILED. POTASSIUM 2.9. DR. OGLESBY INFORMED. POTASSIUM REPLACED. IV PATENT WITH NO REDNESS OR EDEMA, FLUIDS INFUSING. NURSE NOTICED PATIENT CHEWS FOD AND PUTS IT BACK ON PLATE AND DOES NOT SWALLOW. FALL PROTOCOL IN PLACE. CALL LIGHT IN REACH. WILL CONTINUE TO MONITOR.
[2020-07-02 15:14] VITALS: BP 131/86
[2020-07-02 17:25] LABS: CALCIUM 9.1 mg/dL (8.5-10.1); CREATININE 0.7 mg/dL (0.6-1.0); MAGNESIUM 1.5 mg/dL (1.8-2.4); PHOSPHORUS 4.1 mg/dL (2.6-4.7); POTASSIUM 3.8 mmol/L (3.5-5.1)
[2020-07-02 19:25] VITALS: BP 131/87
--- NOTE | 2020-07-02 19:57 | NUR ---
PT ALERT AND ORIENTED X4. VSS AFEBRILE. NO C/O PAIN NSR ON MONITOR. NO S/S DISTRESS PRESENTLY.
--- NOTE | 2020-07-03 03:06 | NUR ---
PT ALERT AND ORIENTED X4 VSS AFEBRILE. NO C/O PAIN. NO S/S DISTRESS. ZOFRAN GIVEN FOR NAUSEA. MELATONIN GIVEN FOR SLEEP. PT HAS BEEN SLEEPING QUIETLY, NO S/S DISTRESS. BED DOWN. CALLL LIGHT IN REACH. BED ALARM ON . INSTRUCTED PT TO CALL NS PRIOR TO GETTING OOB.
[2020-07-03 03:48] VITALS: BP 139/86
--- NOTE | 2020-07-03 05:28 | NUR ---
PT PROGRESSING YOWARDS D/C GOALS. VSS. O C/O PAIN. NO S/S DISTRESS.
[2020-07-03 05:42] LABS: ABSOLUTE NEUTROPHILS 7.4 thou/uL (1.4-8.2); BASOPHILS 0.4 % (0.0-2.0); HEMATOCRIT 38.3 % (37.0-47.0); HEMOGLOBIN 12.7 gm/dL (12.0-15.0); LYMPHOCYTES 13.9 % (24.0-44.0); MCH 30.8 pg (26.0-34.0); MCHC 33.2 g/dL (28.0-37.0); MCV 92.9 fL (80.0-100.0); PLATELET COUNT 238 thou/uL (150-400); POLYS 78.7 % (36.0-66.0); RBC 4.13 mil/uL (4.20-5.00); RDW 15.9 % (10.5-14.5); WBC 9.4 thou/uL (4.0-11.0)
[2020-07-03 05:52] LABS: CALCIUM 8.8 mg/dL (8.5-10.1); CREATININE 0.6 mg/dL (0.6-1.0); POTASSIUM 3.5 mmol/L (3.5-5.1)
[2020-07-03 08:53] VITALS: BP 157/90
[2020-07-03] MEDS ORDERED: METHOTREXATE 22.5 MG PO (11:55)
[2020-07-03] MEDS ORDERED: REMICADE 1100 MG/VIA IV (11:57)
[2020-07-03] MEDS ORDERED: RAYOS5 MG PO (12:07)
[2020-07-03 12:09] VITALS: BP 157/90
== END 2020-07-03 13:36 | disposition home or self-care (01) | DRG 871 ==
LOC: ER 09:51 → 3W 12:31 → EROBS 12:31 → 3W 23:33
PROVIDERS: Emergency Medicine; Internal Medicine; Nurse Practitioner; Specialist; ADMIT Internal Medicine; ATTEND Internal Medicine
PROC: XW033E5 Introduction of Remdesivir Anti-infective into Peripheral Vein, Percutaneous Approach, New Technology Group 5 (ICD-10-PCS; principal; 2020-06-27)
DX: A41.9 Sepsis, unspecified organism (principal); U07.1 COVID-19; J96.01 Acute respiratory failure with hypoxia; J12.9 Viral pneumonia, unspecified; G92 Toxic encephalopathy; N39.0 Urinary tract infection, site not specified; I10 Essential (primary) hypertension; E78.5 Hyperlipidemia, unspecified; K52.9 Noninfective gastroenteritis and colitis, unspecified; F41.1 Generalized anxiety disorder; Z66 Do not resuscitate; L40.50 Arthropathic psoriasis, unspecified; R62.7 Adult failure to thrive; I16.0 Hypertensive urgency; E87.6 Hypokalemia; Z90.710 Acquired absence of both cervix and uterus; Z90.49 Acquired absence of other specified parts of digestive tract; Z88.2 Allergy status to sulfonamides; Z88.7 Allergy status to serum and vaccine; Z88.8 Allergy status to other drugs, medicaments and biological substances; Z86.718 Personal history of other venous thrombosis and embolism; Z68.23 Body mass index [BMI] 23.0-23.9, adult; Z79.899 Other long term (current) drug therapy
CPT/HCPCS: 10879

== ENCOUNTER 2020-08-05 09:10 | Day surgery (SDC) | payer OTHER, MEDICARE ==
[~2020-08-05] VITALS: Ht 154.9 cm; Wt 51.3 kg
--- NOTE | ~2020-08-05 | O ---
[facility] [place] [address] OPERATIVE REPORT Name: SHEILA SAMSON Room #: 150-3 [facility]..#: [id number] Admission: 08/05/20 Attend Phys: Mac Andino MD Discharge: Date of : 47 Report #: [id number] THIS REPORT FOR: cc: Scott Doe MD, Christopher B. MD Kneidel,Mac Tamez MD ~ DATE OF SERVICE: 08/05/2020 PREOPERATIVE DIAGNOSIS: Left second toe hammertoe. POSTOPERATIVE DIAGNOSIS: Left second toe hammertoe. PROCEDURE: Left second toe proximal interphalangeal joint arthrodesis. SURGEON: Dr. Mac Andino. OVEN LABORER: Ginny Santamaria. ANESTHESIA: General. ESTIMATED BLOOD LOSS: Minimal. DRAINS: No drains. TOURNIQUET TIME: 20 minutes. DESCRIPTION OF PROCEDURE: The patient was brought to the operating room where she was placed under general anesthesia. Once under adequate general anesthesia, her left lower extremity was prepped and draped in sterile manner. The extremity was elevated, exsanguinated, tourniquet placed 300 mmHg. A dorsal longitudinal incision over the second toe proximal interphalangeal joint was made. This was dissected down through the soft tissue to the extensor mechanism, which was incised exposing the proximal phalangeal head and the base of the middle phalanx. The proximal phalangeal head was then resected utilizing a sagittal saw, the base of the middle phalanx was then denuded of any cartilage with a rongeur and subsequently, the middle and proximal phalanges were drilled and broached for the Smart Toe implant size 19. Smart Toe implant was then placed. Excellent fixation was achieved as verified under fluoroscopy. The wound was irrigated copiously and the extensor mechanism was repaired with 4-0 Vicryl suture. The wound was irrigated once again copiously and the skin was closed with 4-0 nylon for the skin. The wound was dressed with Xeroform, 4 x 4s, and sterile soft compressive dressing was placed. Tourniquet was let down at 20 minutes. Toes were pink and warm with good capillary refill. There were [facility] [address] [address] OPERATIVE REPORT Name: SHEILA SAMSON Room #: 150-3 [facility]..#: [id number] Admission: 08/05/20 Attend Phys: Mac Andino MD Discharge: Date of : 47 Report #: [id number] no complications from the procedure. The patient tolerated the procedure well and went to recovery room without incident. By: 1105 [id number] Mac Andino MD /nt
[~2020-08-05 09:10] MED LIST changes: +ATENOLOL 50MG T50 M1 PO; +ATENOLOL 50MG T50 MG PO; +CORTEF 20 MG TA20 M1 PO; +CORTEF 20 MG TA20 MG PO; +DIAZEPAM 10 MG10 M2 PO; +DULOXETINE HCL60 MG PO; +HYDROCHLOROTHIA25 M2 PO; +HYDROCORTISONE10 MG PO; +METHOTREXATE 22.5 M1 PO; +NORVASC5 MG PO; +OXYCODONE HCL20 M1 PO; +RAYOS5 MG PO; +VITAMIN B-12100 MC1 PO; +VITAMIN B-50 C0.4 MG PO; +VITAMIN B-625 MG PO; +VITAMIN C500 M2 PO; +ZESTRIL20 MG PO
[2020-08-05 10:09] LABS: CALCIUM 9.6 mg/dL (8.5-10.1); CREATININE 0.8 mg/dL (0.6-1.0); POTASSIUM 4.1 mmol/L (3.5-5.1)
[2020-08-05 10:22] VITALS: BP 114/68
[2020-08-05] MEDS ORDERED: PERCOCET 5-3251 EACH PO (11:00)
[2020-08-05 11:46] VITALS: BP 114/68
== END 2020-08-05 12:30 | disposition home or self-care (01) ==
LOC: TBA 09:10 → OR 09:10 → TBA 09:12 → OR 12:30
PROVIDERS: ATTEND Orthopaedic Surgery Foot and Ankle Surgery
DX: M20.42 Other hammer toe(s) (acquired), left foot (principal); I10 Essential (primary) hypertension; M06.9 Rheumatoid arthritis, unspecified; F32.9 Major depressive disorder, single episode, unspecified; F41.9 Anxiety disorder, unspecified; K21.9 Gastro-esophageal reflux disease without esophagitis; Z98.890 Other specified postprocedural states; Z79.899 Other long term (current) drug therapy; Z90.710 Acquired absence of both cervix and uterus; Z90.49 Acquired absence of other specified parts of digestive tract; Z88.8 Allergy status to other drugs, medicaments and biological substances; Z88.2 Allergy status to sulfonamides
CPT/HCPCS: 50010; 50101; 50386; 50951; 56524; 56527; 57091; 57179; 58503; 62110; 62900; 70005

== ENCOUNTER → 2020-10-19 | Outpatient (CLI) | payer OTHER, MEDICARE ==
[~2020-10-19] MED LIST changes: +PERCOCET 5-3251 EACH PO
== END ==
LOC: BC 09-21 16:02
PROVIDERS: ATTEND Internal Medicine
DX: Z12.31 Encounter for screening mammogram for malignant neoplasm of breast (principal)

== ENCOUNTER 2021-05-05 10:47 | Emergency (ER) | payer OTHER, MEDICARE ==
[~2021-05-05] VITALS: Ht 154.9 cm; Wt 52.2 kg
[2021-05-05] MEDS ORDERED: TRAZODONE HCL100 MG PO (11:00)
[2021-05-05] MEDS ORDERED: FLEXERIL PO (11:01)
[2021-05-05] MEDS ORDERED: IBUPROFEN 800800 M1 PO (11:04)
[2021-05-05 13:17] LABS: HEMATOCRIT 41.4 % (37.0-47.0); MCH 30.2 pg (26.0-34.0); MCHC 33.8 g/dL (28.0-37.0); MCV 89.2 fL (80.0-100.0); RBC 4.65 mil/uL (4.20-5.00); RDW 14.9 % (10.5-14.5); WBC 9.8 thou/uL (4.0-11.0)
[2021-05-05 13:26] LABS: CALCIUM 9.2 mg/dL (8.5-10.1); CREATININE 0.5 mg/dL (0.6-1.0)
[2021-05-05 13:32] LABS: ALBUMIN 3.7 g/dL (3.4-5.0); TOTAL BILIRUBIN 0.6 mg/dL (0.2-1.0)
[2021-05-05] MEDS ORDERED: VALACYCLOVIR1000 MG PO (13:56)
[2021-05-05 14:20] VITALS: BP 154/96
--- NOTE | 2021-05-05 14:33 | EKG ---
[place] [address] [place] [address] ELECTROCARDIOGRAM REPORT Name: SHEILA SAMSON Room #: [facility]#: [id number] Admission: 05/05/21 Attend Phys: Discharge: 05/05/21 Date of : 47 Report #: [id number] [facility] ED Test Date: 2021-05-05 Test Time: 12:01:02 Pat Name: SHEILA SAMSON Department: Room: Gender: F Computer Science Professor: PAULETTE : 1945 Requested By: Jacobo Casper Order Number: [id number] MD: Ryan Pardo Measurements Intervals Collyer Rate: 87 P: 40 HI: 168 QRS: -35 QRSD: 97 T: -2 QT: 378 QTc: 455 Interpretive Statements Sinus rhythm Inferior infarct, old Probable anterior infarct, age indeterminate Compared to ECG 06/27/2020 10:14:09 No significant changes Electronically Signed On 05-05-2021 14:33:11 CDT by Ryan Pardo [email or web address] <ELECTRONICALLY SIGNED> By: Ryan Pardo MD, [facility] 05/05/21 1433 120 120 Ryan Pardo MD, [facility] /EPI
== END 2021-05-05 14:20 | disposition home or self-care (01) ==
LOC: ER 10:47
PROVIDERS: Physician Assistant
DX: N64.4 Mastodynia (principal); B02.9 Zoster without complications; I10 Essential (primary) hypertension; K21.9 Gastro-esophageal reflux disease without esophagitis; F41.9 Anxiety disorder, unspecified; F32.9 Major depressive disorder, single episode, unspecified; Z90.710 Acquired absence of both cervix and uterus; Z90.49 Acquired absence of other specified parts of digestive tract; Z98.890 Other specified postprocedural states; Z79.1 Long term (current) use of non-steroidal anti-inflammatories (NSAID); Z79.891 Long term (current) use of opiate analgesic; Z79.899 Other long term (current) drug therapy; Z88.6 Allergy status to analgesic agent; Z91.041 Radiographic dye allergy status; Z88.2 Allergy status to sulfonamides; Z88.7 Allergy status to serum and vaccine; Z91.09 Other allergy status, other than to drugs and biological substances